=== PATIENT | female | born 1995 | race Caucasian/White ===

== ENCOUNTER 2018-09-03 13:14 | Emergency (ER) | payer BC ==
[2018-09-03 13:26] VITALS: BP 137/75
--- NOTE | 2018-09-03 13:37 | UC ---
Throat Pain/Nasal Jaylen HPI - HPI Summary HPI Summary: nasal congestion x 4 days sinus pain and pressure, pnd, sore throat no fever, no chills no cough , - History of Current Complaint Chief Complaint: UCGeneralIllness Stated Complaint: CONGESTION, COUGH, SORE THROAT Time Seen by Provider: 09/03/18 13:24 Hx Obtained From: Patient Hx Last Menstrual Period: 07/2018 ?: No Onset/Duration: Gradual Onset, Lasting Days - 4, Still Present Severity: Moderate Pain Intensity: 0 Cough: None Associated Signs & Symptoms: Positive: Sinus Discomfort, Nasal Discharge. Negative: Dysphagia, FB Sensation, Drooling, Wheezing, Hoarseness, Fever, Vomiting, Rash - Allergies/Home Medications Allergies/Adverse Reactions: Allergies Allergy/AdvReac Type Severity Reaction Status Date / Time No Known Allergies Allergy Verified 09/03/18 13:24 Home Medications: Home Medications Norgestrel-Ethinyl Estradiol [Cryselle-28] 1 tab PO DAILY 09/03/18 [History Confirmed 09/03/18] Pseudoephedrine TAB* [Sudafed TAB*] 1 dose PO ONCE 09/03/18 [History Confirmed 09/03/18] PMH/Surg Hx/FS Hx/Imm Hx Previously Healthy: Yes - Surgical History Surgical History: Yes Surgery Procedure, Year, and Place: left knee, ACL - Family History Known Family History: Positive: Unknown Negative: Diabetes - Social History Alcohol Use: Occasionally Substance Use Type: None Smoking Status (MU): Never Smoked Tobacco Review of Systems All Other Systems Reviewed And Are Negative: Yes Constitutional: Positive: Negative Skin: Positive: Negative Eyes: Positive: Negative ENT: Positive: Nasal Discharge, Sinus Congestion, Sinus Pain/Tenderness. Negative: Sore Throat Respiratory: Positive: Negative. Negative: Cough Is Patient Immunocompromised?: No Physical Exam Triage Information Reviewed: Yes Appearance: Well-Appearing, No Pain Distress, Well-Nourished Vital Signs: Initial Vital Signs Temp 97.5 F 09/03/18 13:24 Pulse 95 09/03/18 13:24 Resp 16 09/03/18 13:24 BP 137/75 09/03/18 13:24 Pulse Ox 100 09/03/18 13:24 Vital Signs Reviewed: Yes Eye Exam: Normal Eyes: Positive: Conjunctiva Clear, Conjunctiva Inflamed ENT: Positive: Normal ENT inspection, Hearing grossly normal, Pharynx normal, Nasal congestion, Nasal drainage Neck: Positive: Supple, Nontender Throat Pain/Nasal Course/Dx - Differential Dx/Diagnosis Provider Diagnosis: URI (upper respiratory infection) Discharge - Sign-Out/Discharge Documenting (check all that apply): Patient Departure All imaging exams completed and their final reports reviewed: No Studies - Discharge Plan Condition: Stable Disposition: HOME Patient Education Materials: Upper Respiratory Infection (ED) Referrals: Juhi Calloway PA [Primary Care Provider] - If Needed - Billing Disposition and Condition Condition: STABLE Disposition: Home
== END 2018-09-03 13:34 | disposition home or self-care (01) ==
LOC: UCCORT 13:14
DX: J06.9 Acute upper respiratory infection, unspecified (principal)
CPT/HCPCS: 99211; G0463